=== PATIENT | male | born 1975 | race Caucasian/White ===

== ENCOUNTER 2017-01-25 13:24 | Emergency (ER) | payer OTHER ==
[~2017-01-25] VITALS: Ht 167.6 cm; Wt 79.0 kg
[~2017-01-25 13:24] MED LIST: LIB5 PO; LISI-660 PO
[2017-01-25 13:31] VITALS: BP 136/105
[2017-01-25] MEDS ORDERED: AMOX500T2 PO (13:41)
[2017-01-25] MEDS ORDERED: LIB10 PO (14:14)
[2017-01-25] MEDS ORDERED: IBUPROFEN 800 MG TABLET PO ONE (14:15)
== END 2017-01-25 14:34 | disposition home or self-care (01) ==
LOC: EMS 13:27
DX: K08.89 Other specified disorders of teeth and supporting structures (principal); I10 Essential (primary) hypertension; F17.210 Nicotine dependence, cigarettes, uncomplicated
CPT/HCPCS: 99282

== ENCOUNTER 2017-02-02 19:26 | Emergency (ER) | payer OTHER ==
[~2017-02-02] VITALS: Ht 167.6 cm; Wt 79.1 kg
[~2017-02-02 19:26] MED LIST changes: +AMOX500T2 PO; +LIB10 PO; -LIB5 PO
[2017-02-02] MEDS ORDERED: IBUPROFEN 800 MG TABLET PO ONE (21:15)
[2017-02-02 21:36] VITALS: BP 127/80
== END 2017-02-02 21:40 | disposition home or self-care (01) ==
LOC: EMS 19:26
DX: K02.9 Dental caries, unspecified (principal); I10 Essential (primary) hypertension; F17.210 Nicotine dependence, cigarettes, uncomplicated
CPT/HCPCS: 99282

== ENCOUNTER 2018-07-31 17:35 | Emergency (ER) | payer OTHER ==
[~2018-07-31] VITALS: Ht 167.6 cm; Wt 79.5 kg
[~2018-07-31 17:35] MED LIST changes: -AMOX500T2 PO
[2018-07-31 18:26] LABS: BASOPHILS % (AUTO) 0.9 % (0.0-2.0); HEMATOCRIT 45.2 % (41-53); HEMOGLOBIN 15.7 g/dL (13.5-17.5); LYMPHOCYTES # (AUTO) 2.3 K/uL (1.0-4.8); LYMPHOCYTES % (AUTO) 38.1 % (22.0-44.0); MEAN CORPUSCULAR HEMOGLOBIN 33.8 pg (26.0-34.0); MEAN CORPUSCULAR HGB CONC 34.7 G/dL (31.0-37.0); MEAN CORPUSCULAR VOLUME 98 fL (80-100); MONOCYTES # (AUTO) 0.5 K/uL (0.1-1.0); MONOCYTES % (AUTO) 7.7 % (2.0-9.0); NEUTROPHILS # (AUTO) 3.2 K/uL (1.8-7.7); NEUTROPHILS % (AUTO) 52.3 % (40.0-70.0); PLATELET COUNT (AUTO) 141 K/uL (150-450); RED BLOOD CELL COUNT(AUTO) 4.63 MIL/uL (4.50-5.90); RED CELL DISTRIBUTION WIDTH 13.1 % (11.5-14.5)
[2018-07-31 18:37] LABS: ANION GAP 11 mmol/L (8-16); CALCIUM, TOTAL 8.8 mg/dL (8.8-10.5); CARBON DIOXIDE 28 mmol/L (22-29); CHLORIDE 107 mmol/L (98-107); CREATININE 0.73 mg/dL (0.60-1.30); GLOMERULAR FILTR. RATE CALC > 60 mL/min (>60); GLUCOSE,RANDOM 97 mg/dL (70-110); POTASSIUM 4.2 mmol/L (3.5-5.1); SODIUM SERUM 146 mmol/L (136-145); UREA NITROGEN, BLOOD 7 mg/dL (7-18)
[2018-07-31 18:43] LABS: ALANINE AMINOTRANSFERASE 56 U/L (12-78); ALBUMIN 4.1 g/dL (3.4-5.0); ALKALINE PHOSPHATASE 70 U/L (46-116); ASPARTATE AMINOTRANSFERASE 57 U/L (15-37); BILIRUBIN,TOTAL 0.6 mg/dL (0.1-1.0); TOTAL PROTEIN, SERUM 7.8 g/dL (6.4-8.2)
[2018-07-31] MEDS ORDERED: MAGNESIUM SULFATE 2 GM, MVI, ADULT NO.1 WITH VIT K 10 ML, THIAMINE HCL 100 MG, FOLIC AC... IV ONE ×5 (19:45)
[2018-07-31 20:55] LABS: AMPHET/METH SCREEN,URINE NEGATIVE (NEGATIVE); BARBITURATE SCREEN, URINE NEGATIVE (NEGATIVE); BENZODIAZEPINES SCREEN,URINE NEGATIVE (NEGATIVE); CANNABINOID SCREEN,URINE POSITIVE (NEGATIVE); COCAINE SCREEN,URINE NEGATIVE (NEGATIVE); METHADONE SCREEN, URINE NEGATIVE (NEGATIVE); OPIATE SCREEN,URINE NEGATIVE (NEGATIVE); PHENCYCLIDINE SCREEN,URINE NEGATIVE (NEGATIVE)
[2018-08-01 03:42] VITALS: BP 118/70
== END 2018-08-01 03:56 | disposition home or self-care (01) ==
LOC: EMS 17:37
DX: F10.229 Alcohol dependence with intoxication, unspecified (principal); I10 Essential (primary) hypertension; F17.210 Nicotine dependence, cigarettes, uncomplicated; Y90.8 Blood alcohol level of 240 mg/100 ml or more; Z79.899 Other long term (current) drug therapy
CPT/HCPCS: 36415; 80053; 80307; 85025; 96365; 99284; G0480; J3411; J3475; J3490 ×2; J7030

== ENCOUNTER 2018-09-04 18:25 | Emergency (ER) | payer OTHER ==
[~2018-09-04] VITALS: Ht 167.6 cm; Wt 81.8 kg
[2018-09-04 19:34] LABS: AMPHET/METH SCREEN,URINE NEGATIVE (NEGATIVE); BARBITURATE SCREEN, URINE NEGATIVE (NEGATIVE); BENZODIAZEPINES SCREEN,URINE NEGATIVE (NEGATIVE); CANNABINOID SCREEN,URINE POSITIVE (NEGATIVE); COCAINE SCREEN,URINE NEGATIVE (NEGATIVE); METHADONE SCREEN, URINE NEGATIVE (NEGATIVE); OPIATE SCREEN,URINE NEGATIVE (NEGATIVE); PHENCYCLIDINE SCREEN,URINE NEGATIVE (NEGATIVE)
[2018-09-05 06:09] VITALS: BP 121/70
== END 2018-09-05 06:17 | disposition home or self-care (01) ==
LOC: EMS 18:26
DX: F10.229 Alcohol dependence with intoxication, unspecified (principal); I10 Essential (primary) hypertension; F17.210 Nicotine dependence, cigarettes, uncomplicated; Z79.899 Other long term (current) drug therapy; Y90.8 Blood alcohol level of 240 mg/100 ml or more
CPT/HCPCS: 36415; 80307; 99284; G0480